=== PATIENT | male | born 1960 | race Caucasian/White ===

== ENCOUNTER 2016-05-26 16:06 | Emergency (ER) | payer OTHER ==
[~2016-05-26 16:06] MED LIST: NAPROSYN500 MG PO; NORCO 5/3251 TABLET PO
== END 2016-05-26 16:27 | disposition left against medical advice (07) ==
LOC: EME 16:06
DX: M62.830 Muscle spasm of back (principal); R11.10 Vomiting, unspecified; Z53.21 Procedure and treatment not carried out due to patient leaving prior to being seen by health care provider